=== PATIENT | female | born 1955 | race Caucasian/White ===

== ENCOUNTER 2024-01-30 19:49 | Emergency (ER) | payer OTHER, SELFPAY ==
[2024-01-30 19:54] VITALS: BP 127/85; BMI 33.0
[2024-01-30 20:38] LABS: % Basophils 0.4 % (0-2); % Eosinophils 1.3 % (0-6); % Immature Granulocytes 0.3 % (0-0.5); % Lymphocytes 25.6 % (20.5-51.1); % Monocytes 6.1 % (1.7-9.3); % Neutrophils 66.3 % (42.2-75.2); Absolute Eosinophils 0.1 10^3/uL (0-0.7); Absolute Lymphocytes 1.9 10^3/uL (1.2-3.4); Absolute Monocytes 0.5 10^3/uL (0.1-0.6); Absolute Neutrophils 4.9 10^3/uL (1.4-6.5); Hematocrit 39.4 % (37.0-47.0); Hemoglobin 13.6 g/dL (12.0-16.0); Mean Corp Hgb Conc. 34.5 g/dL (33.0-37.0); Mean Corpuscular Hgb 30.9 pg (27.0-31.0); Mean Corpuscular Volume 89.5 fL (81.0-99.0); Mean Platelet Volume 10.5 fL (7.4-10.4); Nucleated Red Blood Cells % 0 %; Platelet Count 172 10^3/uL (130-400); Red Cell Dist. Width 13.5 % (11.5-14.5); Urine Albumin 1+ (Neg - Trace); Urine Bilirubin 1+ (Negative); Urine Character Slightly Cloudy (Clear); Urine Color Yellow; Urine Glucose Negative (Negative); Urine Ketone Trace (Negative); Urine Leukocyte 1+ (Negative); Urine Nitrite Negative (Negative); Urine Occult Blood 4+ (Negative); Urine Urobilinogen 1+ (Neg - 1+); White Blood Cell Count 7.4 10^3/uL (4.8-10.8)
[2024-01-30 20:46] LABS: Urine Amorphous Seen; Urine Bacteria Few (Negative)
[2024-01-30 20:53] LABS: ALT (SGPT) 20 U/L (0-35); AST (SGOT) 26 U/L (14-36); Alkaline Phosphatase 114 U/L (38-126); Blood Urea Nitrogen 24 mg/dl (7-17); Calcium 9.3 mg/dl (8.4-10.2); Carbon Dioxide 22 mmol/L (22-30); Chloride 109 mmol/L (98-107); Estimated Creatinine Clearance 59 ml/min; Glucose 111 mg/dl (70-99); Lipase 108 U/L (23-300); Potassium 3.9 mmol/L (3.5-5.1); Sodium 139 mmol/L (135-145); Total Bilirubin 1.1 mg/dl (0.2-1.3); Total Protein 6.9 g/dl (6.3-8.2); eGFR > 60.00
--- NOTE | 2024-01-30 22:57 | ED.GENMED ---
History of Present Illness
<MORIAH Wood - Last Filed: 01/30/24 23:04>
General
Chief Complaint: Urinary Symptoms
Time Seen by Provider: 01/30/24 22:26
Travel History
Have you had any contact with someone who has COVID-19?: No
Do you have any symptoms of coronavirus? Fever > 100 degrees, chills, cough, shortness of breath, sore throat, loss of taste or smell, muscle aches, or headache?: No
History of Present Illness
History of Present Illness:
This is a 68 YO F with a PMH of partial hysterectomy, colon surgery, and arthritis presenting here today for 'urinary retention since 3 p.m.' today. Last seen by her urologist recently. Pt states a bladder scan was done by her urologist and was
clear. She complains of back and abdominal pain which started last night, as well as a feeling of bloating. Pt reports some nausea, which began today. She denies vomiting and diarrhea. Denies chest pain and SOB.
Positive family history of kidney cancer in her younger sister and colon cancer in her family. Pt reports she is due for a colonoscopy. History of colon surgery, hysterectomy, cholecystectomy, partial hysterectom.
Past History
<MORIAH Wood - Last Filed: 01/30/24 23:04>
Past History
ED Past Medical History: Other (Kidney stones, scleroderma, lupus, neurofibromatosis, Raynaud syndrome, arthritis, migraine headaches)
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
Social History
Tobacco: Non-smoker
Alcohol: None
Drug: None
Personal:
Living: with family
Employment: Employed
Family History
Family History: Other (Noncontributory)
Review of Systems
<MORIAH Wood - Last Filed: 01/30/24 23:04>
Review of Systems
Constitutional: Reports no symptoms
EENT: Reports no symptoms
Respiratory: Reports no symptoms
Cardiac: Reports no symptoms
ABD/GI: Reports abdominal pain
: Reports difficulty voiding
Skin: Reports no symptoms
Neurological: Reports no symptoms
Phy Exam
<[facility] - Last Filed: 01/30/24 23:04>
Physical Exam
Physical Exam:
Right upper abdominal pain, and epigastric pain
General Physical Exam
General Presentation: well appearing
General age: appears stated age
General Skin: warm and dry
General Habitus: normal
General Mental: alert
General Hydration: appears well hydrated
Course
<[facility] - Last Filed: 01/30/24 23:04>
Orders/Labs/Results
Orders:
Orders
01/30/24 20:30
Complete Blood Count/With Diff Urgent
Comprehensive Metabolic Panel Urgent
Lipase Urgent
Urinalysis Reflex To Culture Stat
Date Specimen was Collected: 01/30/24
Time Specimen was Collected: 19:58
Urine Microscopic Reflex Cult Stat
Urine Culture Stat
JEY Source: U
Specimen Description:
Date Specimen was Collected: 01/30/24
Time Specimen was Collected: 19:58
01/30/24 23:03
CT Abd/pelvis W Iv Cont Urgent
Comment:
Reason For Exam: lower abd pain, b/l flank pain
Abnormal Lab Results
01/30/24
20:30
MPV 10.5 H fL
(7.4-10.4)
Chloride 109 H mmol/L
(98-107)
BUN 24 H mg/dl
(7-17)
Glucose 111 H mg/dl
(70-99)
Urine Ketones Trace A
(Negative)
Ur Occult Blood Reflex 4+ A
(Negative)
Urine Bilirubin 1+ A
(Negative)
Leukocyte Esterase Rfl 1+ A
(Negative)
Urine RBC 11-15 A /HPF
(0-2)
Urine Bacteria (Reflex) Few A
(Negative)
Urine Albumin (Reflex) 1+ A
(Neg - Trace)
01/30/24 20:30
01/30/24 20:30
Vital Signs
Initial and Last Documented VS:
Initial Vital Signs
Temp Pulse Resp BP Pulse Ox
98.9 F 83 16 127/85 98
01/30/24 19:54 01/30/24 19:54 01/30/24 19:54 01/30/24 19:54 01/30/24 19:54
Last Documented Vital Signs
Temp Pulse Resp BP Pulse Ox
98.9 F 83 16 127/85 98
01/30/24 19:54 01/30/24 19:54 01/30/24 19:54 01/30/24 19:54 01/30/24 19:54
<Tory Judd, DO - Last Filed: 01/31/24 01:02>
Orders/Labs/Results
Orders:
Orders
01/30/24 20:30
Complete Blood Count/With Diff Urgent
Comprehensive Metabolic Panel Urgent
Lipase Urgent
Urinalysis Reflex To Culture Stat
Date Specimen was Collected: 01/30/24
Time Specimen was Collected: 19:58
Urine Microscopic Reflex Cult Stat
Urine Culture Stat
JEY Source: U
Specimen Description:
Date Specimen was Collected: 01/30/24
Time Specimen was Collected: 19:58
01/30/24 23:03
CT Abd/pelvis W Iv Cont Urgent
Comment:
Reason For Exam: lower abd pain, b/l flank pain
Abnormal Lab Results
01/30/24
20:30
MPV 10.5 H fL
(7.4-10.4)
Chloride 109 H mmol/L
(98-107)
BUN 24 H mg/dl
(7-17)
Glucose 111 H mg/dl
(70-99)
Urine Ketones Trace A
(Negative)
Ur Occult Blood Reflex 4+ A
(Negative)
Urine Bilirubin 1+ A
(Negative)
Leukocyte Esterase Rfl 1+ A
(Negative)
Urine RBC 11-15 A /HPF
(0-2)
Urine Bacteria (Reflex) Few A
(Negative)
Urine Albumin (Reflex) 1+ A
(Neg - Trace)
01/30/24 20:30
01/30/24 20:30
Vital Signs
Initial and Last Documented VS:
Initial Vital Signs
Temp Pulse Resp BP Pulse Ox
98.9 F 83 16 127/85 98
01/30/24 19:54 01/30/24 19:54 01/30/24 19:54 01/30/24 19:54 01/30/24 19:54
Last Documented Vital Signs
Temp Pulse Resp BP Pulse Ox
98.9 F 83 16 127/85 98
01/30/24 19:54 01/30/24 19:54 01/30/24 19:54 01/30/24 19:54 01/30/24 19:54
<MORIAH Wood - Last Filed: 01/30/24 23:04>
*Critical Care Note
Total Time (30-74mins, 75-104mins- exclusive of procedures): Not Applicable
<Tory Judd DO - Last Filed: 01/31/24 01:02>
*Radiology
Radiology exam reviewed: radiology read reviewed
*Pulse Oximetry
Patient hypoxic: no
ED Attending Note
<MORIAH Wood - Last Filed: 01/30/24 23:04>
-
Portions of this chart may have been created with voice recognition software.� Occasional wrong word or��sound alike� substitutions may have occurred due to the inherent limitations of voice recognition software.
<Tory Judd DO - Last Filed: 01/31/24 01:02>
ED Attending Note
Patient seen and examined by attending physician: Yes
I performed the substantive portion of visit, reviewed & personally made and approve the management plan that is documented in note by myself or MARIA LUISA.: Yes
I performed a history and physical exam of patient and discussed management with resident, I reviewed resident's note and agree with documented findings and plan of care.: Yes
ED Attending Note:
This is a 68-year-old woman who has history of kidney stones, history of colonic stenosis and large sigmoid polyp status post sigmoidectomy as well as history of right hemicolectomy for removal of the large adenomatous polyp of the cecum 2021. She
has remote history of bladder lift surgery in her 40s. She presents with somewhat chronic intermittent episodes of suprapubic abdominal discomfort accompanied with sense of urinary urgency. Patient states these episodes occur generally every 3 to
4 weeks and last for approximately 2 to 3 days. Lower abdominal pain often times radiates to her lower back and she does have history of lumbar DJD and has undergone lumbar epidural steroid injections most recently February 2023.
Her last ED visit March 2023 she presented with right flank pain radiating to her right lower quadrant similar to previous episodes of renal colic and was found to have a small right UVJ stone with mild hydronephrosis.
She was recently evaluated by a new urologist, Dr. Adame in [place] associated with [facility] 1 week ago. She states during that visit bladder scan showed no evidence of urinary obstruction. Urinalysis was reportedly unremarkable. She
was recommended to undergo CT of the abdomen and pelvis for further evaluation.
She presents to the ED with similar complaints of urinary urgency feeling the need to void but unable to do so, she is also had some bilateral back pain but no fever nor chills, no nausea nor vomiting, no diarrhea nor constipation. Patient states
she moves her bowels normally generally 1-2 times per day.
Upon arrival to the ED Laws catheter inserted by nursing staff with initial output of only 50 cc.
Review of records reveals endoscopy and colonoscopy September 2021. Colonoscopy showing mild stenosis/stricture of the sigmoid colon. Several small polyps resected and retrieved.
GENERAL: 68-year-old woman appears her stated age, bright and alert, pleasant, appears in no acute distress. Laws catheter in place draining clear yellow urine.
EYE: anicteric
NECK: Supple, nontender, no meningismus, no significant adenopathy.
ENT: oral mucosa is moist. No rhinorrhea.
CARDIAC: Regular rate and rhythm. no murmur.
LUNGS: Clear breath sounds bilaterally, no acute respiratory distress, no wheezes/rales/rhonchi
ABDOMEN: Soft, nondistended, minimal tenderness suprapubic region with deep palpation only, no r/g, no cvat. normoactive BS.
NEUROLOGICAL: Alert and oriented x3, no focal neuro deficits. Gait is steady.
SKIN: Warm and dry, normal color, skin intact. No rash.
MUSCULOSKELETAL: No C/C/E. peripheral pulses are full and equal b/l. No palpable tenderness.
PSYCH: Normal and appropriate interaction.
Concern for UTI, bladder spasms/overactive bladder syndrome, kidney stone/bladder stones, irritable bowel syndrome. Intermittent partial bowel obstruction is also a consideration.
Thus far labs are unremarkable, reassuring.
Urinalysis shows few bacteria, 11-15 RBCs, 6-10 WBCs but also note of 6-10 squamous epithelial cells. Not definitively consistent with UTI and patient reports unremarkable urinalysis 1 week ago.
Will check CT of the abdomen pelvis with IV contrast.
01/31/2024 0100 AM
CAT scan is essentially unremarkable. No acute intra-abdominal pathology. No bowel obstruction or inflammation. Prior right hemicolectomy with enterocolic anastomosis. There is a nonobstructing punctate right midpole renal calculus but no
hydronephrosis, no free air nor free fluid.
At this point no clear cut explanation for patient's intermittent lower abdominal discomfort with urinary urgency. There is currently no evidence of urinary obstruction. She may be suffering with intermittent bladder spasms/overactive bladder as
well as potential intermittent colonic spasm such as irritable bowel syndrome.
Recommend follow-up with her urologist with CT result for further evaluation and recommend trial of as needed Bentyl for potential spastic colon.
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
Return precautions discussed.
Discharge Plan
Departure
Patient Disposition: Home (Routine Discharge)
Date of Disposition: 01/31/24
Time of Disposition: 00:55
Patient with high blood pressure during this ER visit?: No
Condition: Good
Discharge Problem:
Intermittent lower abdominal pain, Overactive bladder, IBS (irritable bowel syndrome)
Instructions: Irritable bowel syndrome, IBS Diet, Bladder spasm
Prescriptions:
New
dicyclomine 20 mg tablet
20 mg PO QID PRN (Reason: abdominal pain) Qty: 30 0RF
No Action
hydroxychloroquine 200 MG tablet
100 mg PO DAILY
omeprazole [Prilosec] 20 MG capsule,delayed release(DR/EC)
40 mg PO DAILY
zolpidem [Ambien CR] 6.25 MG tablet,ext release multiphase
12.5 mg PO HS
Vitamin B-12:
500 mcg PO DAILY
Vitamin D3
50 mg PO DAILY
levothyroxine 25 MCG tablet
25 mcg PO DAILY
albuterol sulfate 1 PUFF HFA aerosol inhaler
2 puff inhalation R Q4HPRN PRN (Reason: Asthma)
budesonide-formoterol [Symbicort] 1 PUFF HFA aerosol inhaler
2 puff inhalation PRN PRN (Reason: asthma)
simethicone [Gas-X Extra Strength] 125 MG tablet,chewable
125 mg PO DIRECTED
polyethylene glycol 3350 238 GM powder
119 gm PO DIRECTED
polyethylene glycol 3350 238 GM powder
238 gm PO DIRECTED
Ducolax
2 tab PO DIRECTED
sulfamethoxazole-trimethoprim [Bactrim DS] 800-160 mg tablet
1 tab PO BID Qty: 14 0RF
Referrals:
Bren Mancini CRNP [Family Provider] - Call in 1-3 days for appt
Activity Restrictions/Additional Instructions:
Follow-up with your urologist for further evaluation.
Would recommend follow-up with pile driver operator barge mounted as well as your intermittent lower abdominal pain symptoms may be bowel related such as irritable bowel syndrome.
For potential irritable bowel/spastic colon, you have been prescribed dicyclomine which you can take 4 times daily as needed for lower abdominal pain/discomfort/bloating.
Interventions
Interventions:
*Risk Screen - Suicide Last Done: 01/30/24 19:54
*General Assessment Last Done: 01/30/24 22:22
*Neglect/Abuse Screening Last Done: 01/30/24 19:54
ED- Fall Risk Assessment Last Done: 01/30/24 22:24
*ED COVID-19 Vaccine History Last Done: 01/30/24 22:22
ED-Female Genitourinary Assessment Last Done: 01/30/24 22:24
Discharge Date and Time
Print Language: MOHAWK
[2024-01-31 00:44] VITALS: BP 121/63
== END 2024-01-31 01:02 | disposition home or self-care (01) ==
LOC: EMR 19:49
PROVIDERS: Emergency Medicine; EMERGENCY PHYSICIAN Emergency Medicine; FAMILY PHYSICIAN Nurse Practitioner
DX: R10.30 Lower abdominal pain, unspecified (principal); N32.81 Overactive bladder; K58.9 Irritable bowel syndrome, unspecified
CPT/HCPCS: 99285; 51702; 74177; 80053; 81003; 81015; 83690; 85025; 87086; Q9967

== ENCOUNTER → 2024-04-01 09:57 | Outpatient (REF) | payer OTHER, SELFPAY | LOC: HWRAD 09:57 | PROVIDERS: ATTENDING PHYSICIAN Family Medicine; FAMILY PHYSICIAN Nurse Practitioner | DX: M25.512 Pain in left shoulder (principal); M25.522 Pain in left elbow; M25.532 Pain in left wrist; M79.642 Pain in left hand; M79.641 Pain in right hand; M25.531 Pain in right wrist | CPT/HCPCS: 73030; 73080; 73110; 73130 ==

== ENCOUNTER → 2024-06-13 10:49 | Outpatient (REF) | payer OTHER, SELFPAY | LOC: HWRAD 10:49 | PROVIDERS: ATTENDING PHYSICIAN Internal Medicine | DX: R05.3 Chronic cough (principal) | CPT/HCPCS: 71046 ==

== ENCOUNTER → 2024-07-17 14:43 | Outpatient (REF) | payer OTHER, SELFPAY | LOC: HWRAD 14:43 | PROVIDERS: ATTENDING PHYSICIAN Internal Medicine | DX: R91.8 Other nonspecific abnormal finding of lung field (principal) | CPT/HCPCS: 71260; Q9967 ==

== ENCOUNTER → 2024-07-24 10:46 | Outpatient (REF) | payer OTHER, SELFPAY | LOC: HWWDC 10:46 | PROVIDERS: ATTENDING PHYSICIAN Internal Medicine | DX: Z12.31 Encounter for screening mammogram for malignant neoplasm of breast (principal) | CPT/HCPCS: 77063; 77067 ==

== ENCOUNTER → 2024-12-31 14:23 | Outpatient (REF) | payer OTHER, SELFPAY | LOC: HWRAD 14:23 | PROVIDERS: ATTENDING PHYSICIAN Physician Assistant | DX: N39.41 Urge incontinence (principal); R35.0 Frequency of micturition; Z87.442 Personal history of urinary calculi | CPT/HCPCS: 74176 ==

== ENCOUNTER 2025-01-06 06:19 | Day surgery (SDC) | payer OTHER, SELFPAY | END 2025-01-06 12:34 | disposition home or self-care (01) | LOC: GI 06:19 | PROVIDERS: ATTENDING PHYSICIAN Internal Medicine Gastroenterology | DX: R12 Heartburn (principal); K44.9 Diaphragmatic hernia without obstruction or gangrene; K31.7 Polyp of stomach and duodenum; K31.89 Other diseases of stomach and duodenum; K92.1 Melena | CPT/HCPCS: 43239; 88305; 88342 ==

== ENCOUNTER 2025-08-17 06:32 | Day surgery (SDC) | payer OTHER, SELFPAY ==
[2025-07-28 11:01] LABS: Hematocrit 44.9 % (37.0-47.0); Hemoglobin 14.7 g/dL (12.0-16.0); Mean Corp Hgb Conc. 32.7 g/dL (33.0-37.0); Mean Corpuscular Volume 93.9 fL (81.0-99.0); Platelet Count 218 10^3/uL (130-400); Red Cell Dist. Width 14.1 % (11.5-14.5)
[2025-07-28 11:39] LABS: ALT (SGPT) 18 U/L (0-35); AST (SGOT) 21 U/L (14-36); Albumin 4.5 g/dl (3.5-5.0); Alkaline Phosphatase 91 U/L (38-126); Blood Urea Nitrogen 24 mg/dl (7-17); Calcium 9.3 mg/dl (8.4-10.2); Carbon Dioxide 30 mmol/L (22-30); Chloride 102 mmol/L (98-107); Glucose 91 mg/dl (70-99); Potassium 4.4 mmol/L (3.5-5.1); Sodium 137 mmol/L (135-145); Total Protein 6.6 g/dl (6.3-8.2); eGFR > 60.00
[2025-07-28 14:04] VITALS: BMI 34.4
[2025-08-17] VITALS (15 sets, daily range): BP systolic 100–144; BP diastolic 56–85; BMI 34.4
--- NOTE | 2025-08-17 11:58 | HP.FOC2 ---
Focused History & Physical
Chief Complaint
HPI:
Chief Complaint: Incisional hernia
HPI / Indication for Planned Procedure: Patient is a 69-year-old female recently seen in outpatient surgical evaluation after CT imaging for intermittent abdominal pain identified an incisional hernia. There is a visible protrusion/swelling in
the periumbilical region with CT imaging demonstrating at least 2 separate fascial defects including at the umbilicus and supraumbilical region spanning a vertical length of 7 to 8 cm. Physical examination in the office confirmed the presence of
reducible incisional hernias. After discussions regarding treatment options patient wished to pursue operative correction and presents today for scheduled repair.
Relevant Past Medical History: Other (History of kidney stones, fibromyalgia, Sjogren's, possible connective tissue disorder, migraine headaches, asthma, osteoporosis, history of pulmonary nodules)
Relevant Social History: Negative
Relevant Family History: Negative
Relevant Past Surgical History: Positive for (Open cholecystectomy, open appendectomy, breast reduction, SASHA/BSO, abdominoplasty, robotic laparoscopic sigmoidectomy, robotic right hemicolectomy with ileocecal anastomosis, right total knee,
thoracolumbar epidural injections)
Review of Systems
Review of Pertinent Systems: All Systems Negative
Medication
See Medication form for detailed medications: Yes
Medication List (including Herbals & OTC):
hydroxychloroquine 200 mg tablet 200 mg PO DAILY 12/24/09
Vitamin B-12: 500 mcg PO DAILY 09/29/13
Vitamin D3 50 mg PO DAILY 09/29/13
omeprazole 20 mg capsule,delayed release (Prilosec) 40 mg PO DAILY 09/29/13
zolpidem 6.25 mg tablet,extended release,multiphase (Ambien CR) 10 mg PO HS 09/29/13
albuterol sulfate 90 mcg/actuation aerosol inhaler 2 puff inhalation R Q4HPRN PRN Asthma 07/10/19
duloxetine 30 mg capsule,delayed release 30 mg PO DAILY 08/10/25
fluticasone propionate 50 mcg/actuation nasal spray,suspension 1 spray intranasal DAILY PRN congestion 08/10/25
tirzepatide (weight loss) 5 mg/0.5 mL subcutaneous pen injector 5 mg SC QWEEK 08/10/25
Medications Reviewed: Yes
Allergies and Reactions
Patient has Allergies: Yes
Noted Allergies and Reactions:
Allergy/AdvReac Type Severity Reaction Status Date / Time
cefuroxime axetil (From Allergy Hives Verified 08/10/25 11:14
Ceftin)
sulfamethoxazole (From Allergy Hives Verified 08/10/25 11:14
Bactrim)
trimethoprim (From Bactrim) Allergy Hives Verified 08/10/25 11:14
bee Allergy throat Uncoded 08/10/25 11:14
closes
Pertinent Physical Exam
All Other Systems: Negative
Head/Neck: Normal
Lungs: Normal
Heart: Normal
Abdomen: Other (Reducible umbilical and supraumbilical incisional hernias. Multiple well-healed surgical scars)
Extremities: Normal
Neurological: Normal
Diagnosis / Assessment
69-year-old female presenting for scheduled operative correction of incisional hernias
Plan / Procedure
Robotic assisted laparoscopic repair incisional hernias with mesh
Anesthesia/Sedation to be done by Anesthesia Provider: Yes
--- NOTE | 2025-08-17 12:02 | W.SUR.PREOP ---
Pre-Operative Surgical Note
-
I have examined this patient prior to the performance of the scheduled procedure.
The patient's condition is unchanged from the time of the current History and
Physical and the patient is able to undergo the scheduled procedure.
[2025-08-17] MEDS: NORMOSOL-R/PLASMALYTE-A 1000 IV (12:08)
[2025-08-17] MEDS: TYLENOL 1000 MG PO (12:09)
[2025-08-17] MEDS: VANCOCIN 530 MG IV (12:22)
--- NOTE | 2025-08-17 16:28 | W.IMMPOSTOP ---
Addendum entered and electronically signed by Artur Gagnon MD 08/19/25 10:30:
#[id number]
Original Note:
Surgical Immed Post Op Note
-
Primary Surgeon: Artur Gagnon MD
Assisting Surgeon: Blank Farooq PA-C
Pre-op Diagnosis: Incisional hernias
Post-op Diagnosis: Incisional hernias, 8 cm
Procedure Performed: Robotic assisted laparoscopic repair incisional hernia with mesh; IPUM+; Ventralight ST 20 cm x 15 cm
Robotic assisted laparoscopic lysis of adhesions
Anesthesia Type: GETA + 0.25% Marcaine with epinephrine
Specimen / Cultures: None
Estimated Blood Loss: 12mL
Complications: none immediate
Operative Findings: Extensive midline adhesions from upper abdomen all through suprapubic area and into multiple hernias as well as right side abdominal wall including colon, residual omentum and small bowel. Adhesiolysis increased operative time
by greater than 90 minutes over typical expected adhesions for operative procedure.
Multiple midline incisional hernia spanning vertical length of 8 cm in maximal width of 4 cm. Fascial closure with running continuous #1 PDS STRATAFIX symmetric suture. Intraperitoneal underlay mesh repair, BD VentralightST 20 cm x 15 cm secured
with circumferential 2-0 PDS STRATAFIX spiral suture and as well as fixation to midline with 2-0 PDS STRATAFIX spiral.
The assistance of Blank Farooq PA-C was required due to the complexity of the procedure. During the procedure Blank Farooq PA-C assisted with port placement, robotic instrumentation and suture material exchanges, and closure of the surgical incision
sites. I was present for the entirety of the operative procedure.
[2025-08-17] MEDS: DILAUDID 0.5 MG IV ×2 (16:53→17:11)
[2025-08-17] MEDS: NSS 1000 IV (18:38)
--- NOTE | 2025-08-17 18:41 | PTCARENOTE ---
1830 pt arrived from [facility]. v[facility]. AAOX3. IVF infusing. 3 lap sites open to air with glue. abdominal binder in place. galeas draining yellow urine. oriented to room and call [facility]. at bedside.
[2025-08-17] MEDS: LOVENOX 40 MG SC (19:53)
[2025-08-17] MEDS: REFRESH EYE DROPS (PF) 1 DROPS OPHTH (20:01)
[2025-08-17] MEDS: DILAUDID 1 MG IV (20:02)
[2025-08-17] MEDS: AMBIEN 10 MG PO (22:46)
[2025-08-18] MEDS: NSS 1000 IV ×2 (02:09→12:17)
[2025-08-18 03:07] VITALS: BP 93/51
[2025-08-18] MEDS: DILAUDID 1 MG IV (03:15)
--- NOTE | 2025-08-18 07:14 | W.PN.GS2 ---
Today's Communication / Plan
-
`
Assessment / Plan
-
Assessment: 69-year-old female POD #1 status post robotic assisted laparoscopic repair of incisional hernia with mesh (IPUM+) and extensive lysis of adhesions
AFVSS
During quite well for initial postoperative morning
Plan: Multimodal pain control options including Toradol, Dilaudid; patient prefers tramadol for oral pain medication option
Reduce IV fluids
Maintain on full liquid diet until signs of GI recovery
OOBTC, ambulation as tolerated. Encourage I-S use
Home meds; hold GLP-1 postop
Will reassess in afternoon for possible discharge of pain control, no nausea and tolerating liquid diet
Subjective Data
-
Date of Service: August 18, 2025
Patient seen and examined this a.m.
Reports significant postoperative incisional pain but similar to what she has experienced previously with open abdominal surgery
Denies nausea
States that she slept well until about 3 AM
No flatus or bowel movement
Galeas removed
She has ambulated the halls already and up out of bed to bathroom independently
Objective Data
-
Intake and Output
08/17/25 08/18/25 08/19/25
06:59 06:59 06:59
Intake Total 1210 / 1210
Output Total 475 / 475
Balance 735 / 735
Intake:
IV fluids (Total) 1210 / 1210
Output:
Urine, Galeas 475 / 475
Vital Signs
Temp Pulse Resp BP Pulse Ox
98.2 F 85 16 93/51 94
08/18/25 03:07 08/18/25 03:07 08/18/25 03:07 08/18/25 03:07 08/18/25 03:07
Calcium 9.3 mg/dl (8.4-10.2) 07/28/25 09:59
Total Bilirubin 1.3 mg/dl (0.2-1.3) 07/28/25:59
AST 21 U/L (14-36) 07/28/25:59
ALT 18 U/L (0-35) 07/28/25:59
Alkaline Phosphatase 91 U/L (38-126) 07/28/25:
Total Protein 6.6 g/dl (6.3-8.2) 07/28/25:59
Albumin 4.5 g/dl (3.5-5.0) 07/28/25:59
Physical Exam
-
NAD AAO x 3
ABD: Softly distended, tenderness to palpation central abdomen, no rebound rigidity or guarding
Robotic surgical sites with glue dressings and minimal localized ecchymosis
Abdominal binder placed
Patient has a galeas catheter: No
[2025-08-18] MEDS: PLAQUENIL 200 MG PO (07:55)
[2025-08-18] MEDS: CYMBALTA DELAYED RELEASE 30 MG PO (07:56)
[2025-08-18] MEDS: ULTRAM 50 MG PO ×2 (07:56→14:09)
[2025-08-18] MEDS: PROTONIX 40 MG PO (07:56)
[2025-08-18 08:00] VITALS: BP 107/68
--- NOTE | 2025-08-18 08:52 | CM ---
admitting manager reviewed patient's chart and met with patient and spouse at bedside this am, patient reports that she lives with spouse in a 2 story home, patient is independent with adl's and ambulation, no dme, patient drives, home when stable, no
needs.
Plan; Home when stable, no needs.
[2025-08-18 08:58] LABS: Hematocrit 40.5 % (37.0-47.0); Hemoglobin 13.0 g/dL (12.0-16.0); Mean Corp Hgb Conc. 32.1 g/dL (33.0-37.0); Mean Corpuscular Volume 94.2 fL (81.0-99.0); Platelet Count 184 10^3/uL (130-400); Red Cell Dist. Width 13.5 % (11.5-14.5)
[2025-08-18] MEDS: TORADOL 10 MG IV ×2 (09:12→15:17)
[2025-08-18 10:00] LABS: Blood Urea Nitrogen 17 mg/dl (7-17); Calcium 8.6 mg/dl (8.4-10.2); Carbon Dioxide 26 mmol/L (22-30); Chloride 106 mmol/L (98-107); Estimated Creatinine Clearance 87 ml/min; Glucose 105 mg/dl (70-99); Potassium 4.1 mmol/L (3.5-5.1); Sodium 136 mmol/L (135-145); eGFR > 60.00
[2025-08-18 11:10] VITALS: BP 113/66
--- NOTE | 2025-08-18 14:18 | W.PN.SURGUPD ---
Surgical Update
Surgical Update
Patient seen in follow-up. at bedside.
Resting comfortably. Tolerating full liquids.
Passed flatus and had a small loose stool; baseline
Pain control improved utilizing Toradol which was followed up with tramadol and 1 dose of IV Dilaudid
Patient advises her preference is for discharge today.
She feels as though pain control is adequate. Recommended an additional dose of Toradol which is due at 3 PM prior to DC.
Prescription provided for oxycodone for initial postoperative pain management at home
DC instructions reviewed
--- NOTE | 2025-08-18 14:19 | W.DS.TRANS ---
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
-
Discharge Instructions:
Sleep Apnea Risk Low
Discharge Diagnosis/Procedures Robotic assisted laparoscopic repair incisional
hernias with mesh; lysis of adhesions
Diet As tolerated
Additional Diets Smaller meals initially after surgery as
abdominal bloating and distention are common for
the first few days after surgery
Activity No strenuous activity
Driving Restrictions No driving for 3 to 5 days or if using narcotics
Bathing Restrictions OK to Shower
Wound Care Glue at surgical sites typically peels off in 2
to 3 weeks
Instructions:
Stand-Alone Forms:
Changes to Home Medications: Yes
Discharge Medications:
DC Medications w/original date entered in [employer]
hydroxychloroquine 200 mg tablet 200 mg PO DAILY 12/24/09
Vitamin B-12: 500 mcg PO DAILY 09/29/13
Vitamin D3 50 mg PO DAILY 09/29/13
omeprazole 20 mg capsule,delayed release (Prilosec) 40 mg PO DAILY 09/29/13
zolpidem 6.25 mg tablet,extended release,multiphase (Ambien CR) 10 mg PO HS 09/29/13
albuterol sulfate 90 mcg/actuation aerosol inhaler 2 puff inhalation R Q4HPRN PRN Asthma 07/10/19
duloxetine 30 mg capsule,delayed release 30 mg PO DAILY 08/10/25
fluticasone propionate 50 mcg/actuation nasal spray,suspension 1 spray intranasal DAILY PRN congestion 08/10/25
tirzepatide (weight loss) 5 mg/0.5 mL subcutaneous pen injector 5 mg SC QWEEK 08/10/25
Held on 08/18/25. Instructions: Resume on 09/01/25. hold for 2 weeks post op
acetaminophen 500 mg tablet (Tylenol Extra Strength) 1,000 mg (2 x 500 mg) PO Q6HPRN PRN mild pain #1 tab 08/18/25
ibuprofen 200 mg tablet 400 mg (2 x 200 mg) PO Q6HPRN PRN moderate pain #1 tab 08/18/25
oxycodone 5 mg tablet 5 mg PO Q4HPRN PRN breakthrough/severe pain #15 tabs 08/18/25
Home Medication Changes
Hold tirzepatide for 2 weeks postop or until postop follow-up appointment
Pending Results: No
[2025-08-18 15:26] VITALS: BP 124/71
== END 2025-08-18 16:00 | disposition home or self-care (01) ==
LOC: SDS 06:32
PROVIDERS: ATTENDING PHYSICIAN Surgery; FAMILY PHYSICIAN Physician Assistant
DX: K43.2 Incisional hernia without obstruction or gangrene (principal); K66.0 Peritoneal adhesions (postprocedural) (postinfection)
CPT/HCPCS: 49593; 36415; 80048; 80053; 85027; 93005; C1781